=== PATIENT | female | born 1960 | race African-American/Black ===

== ENCOUNTER 2016-07-07 09:27 | Observation (INO) ==
[2016-07-07] MEDS ORDERED: Nitroglycerin 1 INCH/GM PACKET TP ONE (09:38)
--- NOTE | 2016-07-07 09:42 | Emergency Department Note ---
Disposition Clinical Impression: Chest pain Qualifiers: Chest pain type: unspecified Qualified Code(s): R07.9 - Chest pain, unspecified Disposition: Admitted As Inpatient Condition: Good Referrals: Rip Mac MD [Primary Care Provider] - Forms: ED Satisfaction Letter Time of Disposition: 11:04 Chest Pain HPI - General Chief Complaint: ED Chest Pain Stated Complaint: pain to lower left rib area radiating up left side Source: patient - History of Present Illness HPI Narrative: Patient presents to emergency department for evaluation of left-sided chest pain. She states the pain began at approximately 4:00 this morning. She describes it sharp in nature, she states the left lateral chest and left breast area. She denies any associated nausea vomiting dyspnea or diaphoresis. She states that the pain last for several minutes at a time and then resolve spontaneously. She denies any exacerbating or alleviating features. She states the pain is not changed with exertion or deep breathing. She denies lower extremity pain or swelling. She denies recent travel or prolonged immobilization. She denies history of DVT or PE. She states that she took her aspirin this morning. She reports a history of coronary artery disease, states that she underwent cardiac stenting with 2 cardiac stents several years ago and she is asymptomatic during my evaluation. - Related Data Home Medications Medication Instructions Recorded Confirmed Metformin [Glucophage] 500 mg PO BIDWM 12/25/14 07/07/16 Aspirin 81 mg PO QAM 01/12/15 07/07/16 Lisinopril [Zestril] 2.5 mg PO QAM 01/12/15 07/07/16 Oxycodone HCl/Acetaminophen 1 tab PO Q6H PRN 01/12/15 07/07/16 [Percocet 10-325 mg Tablet] Omeprazole 20 mg PO DAILY 07/07/16 07/07/16 Previous Rx's Medication Instructions Recorded Nitroglycerin 0.4 mg SL Q5MIN PRN #25 tab.subl 11/24/14 Atorvastatin [Lipitor] 80 mg PO HS #30 tablet 01/15/15 Carvedilol [Coreg] 3.125 mg PO BIDWM #60 tablet 01/15/15 Furosemide [Lasix] 20 mg PO DAILY 14 Days 01/15/15 Lisinopril [Zestril] 5 mg PO QAM 30 Days 01/15/15 Albuterol Sulfate [Albuterol 2 puff IH QID #1 inhaler 03/30/16 Inhaler] predniSONE [PredniSONE] 20 mg PO BID #10 tablet 03/30/16 Allergies Allergy/AdvReac Type Severity Reaction Status Date / Time aspirin Allergy Mild See Verified 07/07/16 09:29 Comments acetaminophen [From Vicodin] Allergy See Verified 07/07/16 09:29 Comments azithromycin Allergy See Verified 07/07/16 09:29 [From Zithromax Z-Rod] Comments hydrocodone [From Vicodin] Allergy See Verified 07/07/16 09:29 Comments Penicillins Allergy See Verified 07/07/16 09:29 Comments Constitutional: Denies: fever, chills, weakness, weight change Eyes: Denies: eye pain ENT ED: Denies: ear pain, throat pain, congestion Cardiovascular: Reports: chest pain. Denies: palpitations, dyspnea on exertion , orthopnea, edema, syncope, paroxysmal nocturnal dyspnea Respiratory: Denies: cough, dyspnea, wheezes Gastrointestinal: Denies: abdominal pain, nausea, vomiting, diarrhea Genitourinary: Denies: urgency, dysuria Musculoskeletal: Denies: back pain, neck pain, joint swelling Integumentary: Denies: rash Neurological: Denies: headache, weakness, numbness, paresthesias Psychiatric: Denies: anxiety, depression Endocrine: Denies: fatigue Hematological/Lymphatic: Denies: easy bleeding Chest Pain PMH - Past Medical History Medical history: Reports: coronary artery disease, diabetes Surgical history: Reports: angioplasty/stent Psychiatric history: Reports: no psych history - Social History Smoking Status: Current every day smoker Alcohol use: Reports: none Drug use: Reports: none Father Family Medical History Unknown: Yes (Patient reports a family history of coronary artery disease) Physical Exam - General Limitations: no limitations General appearance: alert, in no apparent distress - Head Head exam: atraumatic - Eye Eye exam: Present: PERRL, EOMI - ENT ENT exam: normal exam, normal oropharynx, mucous membranes moist - Neck Neck exam: Present: normal inspection - Chest Chest inspection: Present: normal inspection, symmetric chest wall rise. Absent : tenderness - Respiratory Respiratory exam: Present: normal lung sounds bilaterally - Cardiovascular Cardiovascular exam: Present: regular rate, normal rhythm, normal heart sounds - Abdominal Exam Abdominal exam: Present: soft, Non-Tender, normal bowel sounds - Extremities Exam Extremities exam: Present: normal inspection, full ROM, normal capillary refill. Absent: tenderness, pedal edema, calf tenderness - Back Exam Back exam: Present: normal inspection. Absent: CVA tenderness (R), CVA tenderness (L) - Neurological Exam Neurological exam: Present: alert, oriented X3, CN II-XII intact - Psychiatric Psychiatric exam: Present: normal affect, normal mood - Skin Skin exam: Present: warm, dry, intact Course Vital Signs Temperature 97 F L 07/07/16 09:35 Pulse Rate 82 07/07/16 09:35 Respiratory Rate 18 07/07/16 09:35 Blood Pressure 174/93 07/07/16 09:35 O2 Sat by Pulse Oximetry 100 07/07/16 09:35 Temperature 97 F L 07/07/16 09:38 Pulse Rate 77 07/07/16 09:53 Respiratory Rate 18 07/07/16 09:53 Blood Pressure 158/89 07/07/16 09:53 O2 Sat by Pulse Oximetry 97 07/07/16 09:53 Oxygen Delivery Oxygen Delivery Room Air Chest Pain - MDM Narrative Medical decision making narrative: Time 11 AM: Patient currently resting currently, asymptomatic. Patient was admitted to the hospitalist service for ongoing testing and treatment. I discussed the case with Dr. Rogers. - Lab Data Lab results narrative: All Lab Results (24 Hours) 07/07/16 07/07/16 07/07/16 Range/Units 10:13 10:13 10:13 WBC 7.3 (4.3-11.1) K/mcL RBC 4.54 (3.82-4.97) M/mcL Hgb 13.7 (11.5-15.4) g/dL Hct 41.6 (35.3-44.9) % MCV 91.6 (83.0-100.0) fL MCH 30.2 (28.0-33.3) pg MCHC 32.9 (31.6-35.5) g/dL RDW 12.9 (11.5-14.5) % Plt Count 259 (140-400) K/mcL MPV 11.4 (9.4-12.4) fL Immature Gran % 0.5 (0-4) % Seg Neutrophils % 66.2 % Lymphocytes % 23.5 % Monocytes % 6.0 % Eosinophils % 3.3 % Basophils % 0.5 % Neutrophils # 4.8 (1.6-8.9) K/mcL Lymphocytes # 1.7 (0.6-4.6) K/mcL Monocytes # 0.4 (0.0-1.3) K/mcL Eosinophils # 0.2 (0.0-0.6) K/mcL Basophils # 0.0 (0.0-0.2) K/mcL PT 11.1 (9.4-12.1) Seconds INR 1.0 APTT 29.9 (26.0-36.0) Seconds Sodium 138 (136-145) mEq/L Potassium 4.4 (3.5-4.5) mEq/L Chloride 103 (98-109) mEq/L Carbon Dioxide 23 (19-29) mEq/L BUN 16 (7-20) mg/dL Creatinine 1.01 (0.57-1.11) mg/dL Est GFR ( Amer) > 60 (> 60) Est GFR (Non-Af Amer) 56 L (> 60) BUN/Creatinine Ratio 16 (6-26) Glucose 322 H (70-99) mg/dL Calculated Osmolality 300 (280-300) Calcium 9.4 (8.6-10.8) mg/dL Troponin I (0-0.03) ng/mL 07/07/16 Range/Units 10:13 WBC (4.3-11.1) K/mcL RBC (3.82-4.97) M/mcL Hgb (11.5-15.4) g/dL Hct (35.3-44.9) % MCV (83.0-100.0) fL MCH (28.0-33.3) pg MCHC (31.6-35.5) g/dL RDW (11.5-14.5) % Plt Count (140-400) K/mcL MPV (9.4-12.4) fL Immature Gran % (0-4) % Seg Neutrophils % % Lymphocytes % % Monocytes % % Eosinophils % % Basophils % % Neutrophils # (1.6-8.9) K/mcL Lymphocytes # (0.6-4.6) K/mcL Monocytes # (0.0-1.3) K/mcL Eosinophils # (0.0-0.6) K/mcL Basophils # (0.0-0.2) K/mcL PT (9.4-12.1) Seconds INR APTT (26.0-36.0) Seconds Sodium (136-145) mEq/L Potassium (3.5-4.5) mEq/L Chloride (98-109) mEq/L Carbon Dioxide (19-29) mEq/L BUN (7-20) mg/dL Creatinine (0.57-1.11) mg/dL Est GFR ( Amer) (> 60) Est GFR (Non-Af Amer) (> 60) BUN/Creatinine Ratio (6-26) Glucose (70-99) mg/dL Calculated Osmolality (280-300) Calcium (8.6-10.8) mg/dL Troponin I 0.02 (0-0.03) ng/mL ITS Impressions Chest X-Ray 07/07/16 09:38 IMPRESSION: Stable chest x-ray. No acute findings. D/ / Alma Hinkle MD / Alma Hinkle MD Interpreting Provider: Alma Hinkle MD Result diagrams: 07/07/16 10:13 07/07/16 10:13 Lab Results 07/07/16 07/07/16 07/07/16 Range/Units 10:13 10:13 10:13 WBC 7.3 (4.3-11.1) K/mcL RBC 4.54 (3.82-4.97) M/mcL Hgb 13.7 (11.5-15.4) g/dL Hct 41.6 (35.3-44.9) % MCV 91.6 (83.0-100.0) fL MCH 30.2 (28.0-33.3) pg MCHC 32.9 (31.6-35.5) g/dL RDW 12.9 (11.5-14.5) % Plt Count 259 (140-400) K/mcL MPV 11.4 (9.4-12.4) fL Immature Gran % 0.5 (0-4) % Seg Neutrophils % 66.2 % Lymphocytes % 23.5 % Monocytes % 6.0 % Eosinophils % 3.3 % Basophils % 0.5 % Neutrophils # 4.8 (1.6-8.9) K/mcL Lymphocytes # 1.7 (0.6-4.6) K/mcL Monocytes # 0.4 (0.0-1.3) K/mcL Eosinophils # 0.2 (0.0-0.6) K/mcL Basophils # 0.0 (0.0-0.2) K/mcL PT 11.1 (9.4-12.1) Seconds INR 1.0 APTT 29.9 (26.0-36.0) Seconds Sodium 138 (136-145) mEq/L Potassium 4.4 (3.5-4.5) mEq/L Chloride 103 (98-109) mEq/L Carbon Dioxide 23 (19-29) mEq/L BUN 16 (7-20) mg/dL Creatinine 1.01 (0.57-1.11) mg/dL Est GFR ( Amer) > 60 (> 60) Est GFR (Non-Af Amer) 56 L (> 60) BUN/Creatinine Ratio 16 (6-26) Glucose 322 H (70-99) mg/dL Calculated Osmolality 300 (280-300) Calcium 9.4 (8.6-10.8) mg/dL Troponin I (0-0.03) ng/mL 07/07/16 Range/Units 10:13 WBC (4.3-11.1) K/mcL RBC (3.82-4.97) M/mcL Hgb (11.5-15.4) g/dL Hct (35.3-44.9) % MCV (83.0-100.0) fL MCH (28.0-33.3) pg MCHC (31.6-35.5) g/dL RDW (11.5-14.5) % Plt Count (140-400) K/mcL MPV (9.4-12.4) fL Immature Gran % (0-4) % Seg Neutrophils % % Lymphocytes % % Monocytes % % Eosinophils % % Basophils % % Neutrophils # (1.6-8.9) K/mcL Lymphocytes # (0.6-4.6) K/mcL Monocytes # (0.0-1.3) K/mcL Eosinophils # (0.0-0.6) K/mcL Basophils # (0.0-0.2) K/mcL PT (9.4-12.1) Seconds INR APTT (26.0-36.0) Seconds Sodium (136-145) mEq/L Potassium (3.5-4.5) mEq/L Chloride (98-109) mEq/L Carbon Dioxide (19-29) mEq/L BUN (7-20) mg/dL Creatinine (0.57-1.11) mg/dL Est GFR ( Amer) (> 60) Est GFR (Non-Af Amer) (> 60) BUN/Creatinine Ratio (6-26) Glucose (70-99) mg/dL Calculated Osmolality (280-300) Calcium (8.6-10.8) mg/dL Troponin I 0.02 (0-0.03) ng/mL - EKG Data EKG attestation: Yes I reviewed and interpreted this EKG. EKG shows normal: sinus rhythm (Normal sinus rhythm with rate of 72. Normal axis. Normal QRS. No acute ST segment or T-wave changes.)
[2016-07-07 10:28] LABS: Basophils % 0.5 %; Eosinophils # 0.2 K/mcL (0.0-0.6); Eosinophils % 3.3 %; Hematocrit 41.6 % (35.3-44.9); Hemoglobin 13.7 g/dL (11.5-15.4); Immature Granulocytes % 0.5 % (0-4); Lymphocytes # 1.7 K/mcL (0.6-4.6); Lymphocytes % 23.5 %; Mean Corpuscular HGB Conc 32.9 g/dL (31.6-35.5); Mean Corpuscular Hemoglobin 30.2 pg (28.0-33.3); Mean Corpuscular Volume 91.6 fL (83.0-100.0); Mean Platelet Volume 11.4 fL (9.4-12.4); Monocytes # 0.4 K/mcL (0.0-1.3); Neutrophils # 4.8 K/mcL (1.6-8.9); Platelet Count 259 K/mcL (140-400); Red Blood Count 4.54 M/mcL (3.82-4.97); Red Cell Distribution Width 12.9 % (11.5-14.5); Segmented Neutrophils % 66.2 %
[2016-07-07 10:30] LABS: Prothrombin Time 11.1 Seconds (9.4-12.1)
[2016-07-07 10:32] LABS: Activated Partial Thrombo Time 29.9 Seconds (26.0-36.0)
[2016-07-07 10:41] LABS: BUN/Creatinine Ratio 16 (6-26); Blood Urea Nitrogen 16 mg/dL (7-20); Calcium 9.4 mg/dL (8.6-10.8); Carbon Dioxide 23 mEq/L (19-29); Chloride 103 mEq/L (98-109); Glucose 322 mg/dL (70-99); Osmolality,Calculated 300 (280-300); Potassium 4.4 mEq/L (3.5-4.5); Sodium 138 mEq/L (136-145); eGFR For African Americans > 60 (> 60); eGFR For Non-African Americans 56 (> 60)
[2016-07-07] MEDS ORDERED: Naloxone 0.4 MG/ML INJ IVP PRN (10:59)
[2016-07-07] MEDS ORDERED: D5% in Water 1,000 ML IVC PRN (13:23)
[2016-07-07] MEDS ORDERED: *HR* Dextrose 50 % in Water (Syg) 50 ML SYRINGE IVP PRN (13:23)
[2016-07-07] MEDS ORDERED: Dextrose Gel 15 GM PO PRN ×2 (13:23)
--- NOTE | 2016-07-07 15:14 | Internal Med History&Physical ---
Date of Encounter: 07/07/16 Time of Encounter: 14:45 Assessment and Plan (1) Chest pain Current visit: Yes Status: Acute Doubt myocardial ischemic origin based on history. Will order d-dimer and chest CT. Qualifiers: Chest pain type: unspecified Qualified Code(s): R07.9 - Chest pain, unspecified (2) Azotemia Current visit: Yes Status: Acute Creatinine has increased from 0.74 on 01/12/2015 to present level of 1.01. (3) Diabetes mellitus type 2 in obese Current visit: No Status: Acute Hemoglobin A1c was elevated at 8.5% on 09/16/2015. Continue Glucophage and do Accu-Cheks with SSI. (4) Hypertension Current visit: No Status: Chronic Continue Coreg and lisinopril. We will monitor blood pressure Qualifiers: Hypertension type: essential hypertension Qualified Code(s): I10 - Essential (primary) hypertension Internal Medicine - H&P: HPI Chief complaint: Chest pain Admitted From: Home Plans for Post Hospital Care: Home History of present illness: Ms. Renae is a 55 year old female who came to emergency room stating she was awakened at 0400 while lying in bed with a sharp discomfort in her left lateral chest. It lasted only 1-2 minutes and then improved. It recurred multiple times over the next few hours. She became concerned so came to emergency room. She was evaluated and felt to deserve admission to rule out MD. She denies previous similar episodes of pain. Her cardiovascular history is significant for hypertension. She does not get chest pain on exertion. She denies DVT or pulmonary embolus. She had a heart catheter at [facility] 01/12/2015 which showed LMCA free of disease, 60% stenosis in the proximal LAD, 50% stenosis in the first marginal of the circumflex, and 60% stenosis in the mid RCA. The LVEF was 60%. Medical therapy was recommended without intervention otherwise. An echocardiogram done 11/22/2014 showed LVEF 55% with mild diastolic dysfunction and no significant valvular abnormalities seen. She denies DVT or pulmonary embolus. She denies cough or dyspnea. Past Med Surg Social Fam HX - Past Medical History Medical history: coronary artery disease, diabetes Psychiatric history: no psych history - Past Surgical History Surgical History: angioplasty/stent - Social History Smoking Status: Current every day smoker Smokeless Tobacco Status: No Alcohol use: none Drug use: none - Family History Mother Adopted: No Living Status: Still Living Hx Family Cardiac Disorders: Yes (MD) Hx Family Endocrine Disorder: Yes (DM) Hx Family Neurologic Disorders: Yes Father History Unknown: Yes (Patient reports a family history of coronary artery disease) Adopted: No Living Status: Hx Family Neurologic Disorders: Yes Internal Medicine - H&P: Meds Nitroglycerin 0.4 mg SL Q5MIN PRN #25 tab.subl 11/24/14 [Rx] Metformin [Glucophage] 500 mg PO BIDWM 12/25/14 [History] Aspirin 81 mg PO QAM 01/12/15 [History] Lisinopril [Zestril] 2.5 mg PO QAM 01/12/15 [History] Oxycodone HCl/Acetaminophen [Percocet 10-325 mg Tablet] 1 tab PO Q6H PRN [History] Atorvastatin [Lipitor] 80 mg PO HS #30 tablet 01/15/15 [Rx] Carvedilol [Coreg] 3.125 mg PO BIDWM #60 tablet 01/15/15 [Rx] Furosemide [Lasix] 20 mg PO DAILY 14 Days 01/15/15 [Rx] Lisinopril [Zestril] 5 mg PO QAM 30 Days 01/15/15 [Rx] Albuterol Sulfate [Albuterol Inhaler] 2 puff IH QID #1 inhaler 03/30/16 [Rx] predniSONE [PredniSONE] 20 mg PO BID #10 tablet 03/30/16 [Rx] Clopidogrel [Plavix] 75 mg PO DAILY 07/07/16 [History] Omeprazole 20 mg PO DAILY 07/07/16 [History] Allergies aspirin Allergy (Mild, Verified 07/07/16 09:29) See Comments Patient reported GI upset with aspirin but no true aspirin allergy. acetaminophen [From Vicodin] Allergy (Verified 07/07/16 09:29) See Comments azithromycin [From Zithromax Z-Rod] Allergy (Verified 07/07/16 09:29) See Comments hydrocodone [From Vicodin] Allergy (Verified 07/07/16 09:29) See Comments Penicillins Allergy (Verified 07/07/16 09:29) See Comments All Systems PM: A 10-system review of systems was performed and is negative for pertinent findings except as documented above in the HPI. Review of systems: Gen.: She states her weight has been stable the past few months Cardiovascular: As per history of present illness Respiratory: She smoked since age 13 up to 3 packs per day. She has not had PFTs and has not been tested for sleep apnea. She does not use home oxygen. GI: She has GERD but denies disorders of her liver gallbladder or exocrine pancreas : She denies hematuria dysuria or kidney stones Neurologic: She denies large distribution strokes or seizures. She has had diabetic peripheral neuropathy diagnosed Endocrine: She has hyperlipidemia and was diagnosed with DM 2 approximately 1 year ago. She denies thyroid disease Hematology/oncology: She denies blood disorders cancers or anemia Psychiatric: She denies anxiety depression or other mental health issues Musk skeletal: She has frequent left knee pain and has been told she has a "pinched nerve" in her back. - Constitutional Vitals: Temp Pulse Resp BP Pulse Ox 97.8 F 77 18 115/73 97 07/07/16 11:38 07/07/16 11:38 07/07/16 11:38 07/07/16 11:38 07/07/16 11:38 Exam: Gen.: She is a well-developed obese female who appears in no acute distress at present time. HEENT: Head is atraumatic normocephalic. Eyes: EOMI. There is no scleral icterus. Mouth: Mucosa is moist. Neck: Supple and nontender. There is no thyromegaly or adenopathy noted. Heart: Regular without murmurs gallops or ectopics. Lungs: No wheezes or crackles are heard. Chest: She is nontender in her chest wall or left lateral ribs to palpation. Abdomen: Soft and nontender. No masses or guarding noted. Extremities: There is no cyanosis edema or clubbing noted. Dorsalis pedis and posttibial pulses are 1-2 over 2 bilaterally. Neurologic: Mental status: She is talkative and a good historian. Cranial nerves: Smile is symmetric. Forehead wrinkles bilaterally. Tongue protrudes midline. EOMI. Motor: There is no pronator drift. Cerebellar: Finger to nose is intact bilaterally. Skin: Warm and dry Internal Med - H&P Results - Labs CBC & Chem 7: 07/07/16 10:13 07/07/16 10:13
[2016-07-07 15:16] VITALS: BP 142/76
[2016-07-07] MEDS ORDERED: Insulin LISPRO 300 UNITS/3 ML VIAL SQ SCH ×2 (16:30→21:00)
--- NOTE | 2016-07-07 17:25 | Discharge Summary ---
Date of Encounter: 07/07/16 Time of Encounter: 17:15 - Discharge Diagnosis (1) Chest pain Priority: Primary Status: Acute Qualifiers: Chest pain type: unspecified Qualified Code(s): R07.9 - Chest pain, unspecified (2) Azotemia Priority: Secondary Status: Acute (3) Diabetes mellitus type 2 in obese Priority: Secondary Status: Chronic (4) Hypertension Priority: Secondary Status: Chronic Qualifiers: Hypertension type: essential hypertension Qualified Code(s): I10 - Essential (primary) hypertension - Discharge Medications Home Medications: Nitroglycerin 0.4 mg SL Q5MIN PRN #25 tab.subl 11/24/14 [Rx] Metformin [Glucophage] 500 mg PO BIDWM 12/25/14 [History] Aspirin 81 mg PO QAM 01/12/15 [History] Oxycodone HCl/Acetaminophen [Percocet 10-325 mg Tablet] 1 tab PO Q6H PRN [History] Atorvastatin [Lipitor] 80 mg PO HS #30 tablet 01/15/15 [Rx] Carvedilol [Coreg] 3.125 mg PO BIDWM #60 tablet 01/15/15 [Rx] Furosemide [Lasix] 20 mg PO DAILY 14 Days 01/15/15 [Rx] Lisinopril [Zestril] 5 mg PO QAM 30 Days 01/15/15 [Rx] Albuterol Sulfate [Albuterol Inhaler] 2 puff IH QID #1 inhaler 03/30/16 [Rx] Clopidogrel [Plavix] 75 mg PO DAILY 07/07/16 [History] Omeprazole 20 mg PO DAILY 07/07/16 [History] Allergies/Adverse Reactions: Allergies aspirin Allergy (Mild, Verified 07/07/16 09:29) See Comments Patient reported GI upset with aspirin but no true aspirin allergy. acetaminophen [From Vicodin] Allergy (Verified 07/07/16 09:29) See Comments azithromycin [From Zithromax Z-Rod] Allergy (Verified 07/07/16 09:29) See Comments hydrocodone [From Vicodin] Allergy (Verified 07/07/16 09:29) See Comments Penicillins Allergy (Verified 07/07/16 09:29) See Comments Procedures/tests Complete & Pending: Procedures Performed prior 72 hours Category Date Time Status CT chest wo con [CT] Routine Cat Scan 07/07/16 16:26 Draft Date of admission: 07/07/16 11:09 Primary care physician: Rip Mac MD - Patient Status Disposition: Home, Self-Care Condition: Good Functional capacity at discharge: independent ambulation Overall status at discharge: patient is progressing back to baseline - Discharge Instructions Follow Up With: Rip Mac MD [Primary Care Provider] - 1 week - Diet and Activity Activity: resume usual activities as tolerated Diet: advance to your usual diet Hospital course: Ms. Renae is a 55 year old female who came to emergency room stating she was awakened at 0400 while lying in bed with a sharp discomfort in her left lateral chest. It lasted only 1-2 minutes and then improved. It recurred multiple times over the next few hours. She became concerned so came to emergency room. She was evaluated and felt to deserve admission to rule out NV. Initial orders were written by the emergency room physician. I saw her on July 07 and performed the history and physical. Repeat cardiac enzymes showed no evidence of myocardial damage. A d-dimer returned within normal range. A chest CT was done and showed no acute findings. There was mild enlargement of the pulmonary artery possibly secondary to elevated pulmonary artery pressures. The etiology of her chest discomfort was uncertain. She wished to be discharged home which I felt was reasonable. She will follow with her PCP Dr. Mac/Jessica Segundo CNP within 1 week. No further workup was done for her azotemia. - Time Spent with Patient Total time spent providing and/or coordinating discharge services: - Constitutional Vitals: Temp Pulse Resp BP Pulse Ox 98.3 F 82 18 142/76 96 07/07/16 15:13 07/07/16 15:13 07/07/16 15:13 07/07/16 15:13 07/07/16 15:13
--- NOTE | 2016-07-07 17:30 | Electrocardiograph Report ---
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
== END 2016-07-07 18:02 | disposition home or self-care (01) ==
LOC: EMEROOPIK 09:27 → INPPIK 09:27
PROVIDERS: ADMIT Internal Medicine; ATTEND Internal Medicine